=== PATIENT | female | born 1960 | race Caucasian/White ===

== ENCOUNTER → 2018-12-01 | Outpatient (CLI) | payer OTHER ==
[2014-12-22 09:49] VITALS: BP 136/83
[~2018-12-01] VITALS: Ht 167.6 cm; Wt 98.0 kg
[~2018-12-01] MED LIST: BUPR150T8 PO; DULO30CA2 PO; HYDR-2145 PO; LISI-338 PO; MONT10TA9 PO; MV,C1TAB27 PO; OSPE60TA2 PO; SINCALIDE 2 MCG in IV NORMAL SALINE 50ML 30 ML IV ONE
--- NOTE | 2018-12-01 11:43 | RAD ---
Examination: NM HEPATOBILIARY SCAN W PHARM History: nausea for 3 months after eating. 2mcg CCK given IV over 30 minutes. 5.3mCi Tc99m Choletec Comparison/Correlation: None Procedure: Serial static images are obtained of the liver and biliary system in the frontal projection following IV administration of 5.3 mCi of Technetium 99m Choletec. After filling of the gallbladder, 2 mcg of sincalide were infused over 15 minutes and dynamic imaging continued over this period. The gallbladder ejection fraction was calculated. Findings: There is prompt hepatic clearance of tracer from the blood pool. There is homogeneous distribution throughout the liver. There is normal filling of the gallbladder and normal emptying into the biliary system and small bowel. The gallbladder ejection fraction measures 20% (normal gallbladder EF is 35% or greater) and this is after 26 minutes. IMPRESSION: 1. The cystic duct and common bile duct are patent. Negative for acute cholecystitis. 2. The gallbladder ejection fraction is abnormal measuring 20 %. Findings may indicate chronic cholecystitis or gallbladder dyskinesia in the appropriate clinical setting. Electronically signed by: Elie Antoine MD (12/01/2018 11:40 AM) [facility]
== END | disposition home or self-care (01) ==
LOC: NM 08:26
PROVIDERS: ATTEND Internal Medicine Gastroenterology
DX: R10.13 Epigastric pain (principal); R11.0 Nausea
CPT/HCPCS: 78227; A9537; J2805